=== PATIENT | male | born 1965 | race African-American/Black ===

== ENCOUNTER 2020-04-01 02:33 | Emergency (ER) | payer OTHER ==
[2020-04-01 02:50] VITALS: BMI 27.3
[2020-04-01] MEDS ORDERED: ACETAMINOPHEN 325 MG TABLET (FP) PO ONE ×2 (04:32)
[2020-04-01] MEDS ORDERED: DIPHTH,PERTUSS(ACELL),TET 0.5 ML DISP.SYRIN IM ONE ×2 (04:32→04:59)
[2020-04-01] MEDS ORDERED: ACETAMINOPHEN 325 MG TABLET (FP) ONE ×2 (04:59→05:01)
[2020-04-01 06:30] VITALS: BP 123/88; PULSE 80; TEMP 98
== END 2020-04-01 07:20 | disposition home or self-care (01) ==
LOC: JER 02:33
PROC: 3E0234Z Introduction of Serum, Toxoid and Vaccine into Muscle, Percutaneous Approach (ICD-10-PCS; principal; 2020-04-01)
PROC: 0HQ1XZZ Repair Face Skin, External Approach (ICD-10-PCS; principal; 2020-04-01)
DX: S50.312A Abrasion of left elbow, initial encounter (principal); S01.112A Laceration without foreign body of left eyelid and periocular area, initial encounter; M54.2 Cervicalgia; M25.531 Pain in right wrist; Y04.8XXA Assault by other bodily force, initial encounter
CPT/HCPCS: 90715; 99283-25